=== PATIENT | female | born 1970 | race Caucasian/White ===

== ENCOUNTER → 2018-12-08 | Day surgery (SDC) | payer OTHER ==
--- NOTE | 2018-12-12 16:21 | PATH ---
Surgical Pathology Report Patient Name: MIRNA HOWE [facility]. Rec. #: [id number] /Age/Gender: 1970 (Age: 48) / F Account: [id number] Location: [facility] Taken: 12/08/2018 Received: 12/08/2018 Reported: 12/12/2018 Physicians: Elsi Elkins M.D. Specimen(s) Received A: LEFT BREAST SPECIMEN - WITH CALCIFICATIONS B: LEFT BREAST SPECIMEN - WITHOUT CALCIFICATIONS Clinical History Nonpalpable lesion Mammographic findings: Microcalcification, suspicious Final Diagnosis A. LEFT BREAST WITH CALCIFICATIONS, STEREOTACTIC BIOPSY: BREAST TISSUE WITH MUCOCELE-LIKE LESION. SEE COMMENT. B. LEFT BREAST WITHOUT CALCIFICATIONS, STEREOTACTIC BIOPSY: BREAST TISSUE WITH MUCOCELE-LIKE LESION. SEE COMMENT. Comment: Mucocele-like lesion with stromal extravasation of mucin, focal associated atypical ductal hyperplasia (ADH), columnar cell change, and extensive calcifications present in association with mucinous contents. Electronically Signed Shay Cordero M.D. Gross Description A. Received in formalin labeled "left breast with calcifications," are 8 hearn-yellow, cylindrical portions of fibroadipose tissue ranging from 0.7-3.4 cm in length and averaging 0.3 cm in diameter. The specimens are submitted in toto in 2 cassettes. B. Received in formalin labeled "left breast without calcifications," are 5 hearn-yellow, cylindrical portions of fibroadipose tissue ranging from 0.4-1.5 cm in length and averaging 0.3 cm in diameter. The specimens are submitted in toto in one cassette. Time to formalin fixation: 5 minutes Total formalin fixation time: Approximately 28 hours. 12/09/201812/09/2018
== END | disposition home or self-care (01) ==
LOC: FMAMMOTONE 13:24
PROVIDERS: ATTEND Surgery Surgical Oncology
PROC: 0HBU3ZX Excision of Left Breast, Percutaneous Approach, Diagnostic (ICD-10-PCS; principal; 2018-12-08)
DX: N60.89 Other benign mammary dysplasias of unspecified breast (principal); R92.1 Mammographic calcification found on diagnostic imaging of breast
CPT/HCPCS: 19081; 87899; 88305-TC; A4648

== ENCOUNTER → 2018-12-09 | Day surgery (SDC) | payer OTHER ==
--- NOTE | 2018-12-12 17:54 | PATH ---
Surgical Pathology Report Patient Name: MIRNA HOWE [facility]. Rec. #: [id number] /Age/Gender: 1970 (Age: 48) / F Account: [id number] Location: [facility] Taken: 12/09/2018 Received: 12/09/2018 Reported: 12/12/2018 Physicians: Elsi Elkins M.D. Specimen(s) Received RIGHT BREAST CORE BIOPSY 9:30-10:00 N4 Clinical History Non-palpable lesion. Ultrasound findings: Cystic lesion Final Diagnosis BREAST, 9:30-10:00, N4, CORE BIOPSY: BENIGN BREAST PARENCHYMA WITH STROMAL FIBROSIS, MICROCYSTS, DILATED DUCTS, USUAL DUCTAL HYPERPLASIA, FOCAL MILD CHRONIC INFLAMMATION AND HISTIOCYTIC PROLIFERATION. Comment: Deeper levels have been examined. Electronically Signed Gregoria Schwartz M.D. Gross Description Received in formalin, labeled "right breast, core biopsy, 9:30-10:00 N4" is a 1.3 x 0.8 x 0.2 cm aggregate of cores and fragments of light hearn and yellow-hearn tissue admixed with blood clot. Entirely submitted in one cassette. Time to formalin fixation: < 1 minute. Total formalin fixation: Approximately 6 hours AE/12/09/2018 ebram/12/09/2018
--- NOTE | 2018-12-13 10:08 | OP ---
DATE OF OPERATION: 12/09/2018 PREOPERATIVE DIAGNOSIS: Right breast mass, 9 thirty to 10 o'clock, 4 cm from the nipple. POSTOPERATIVE DIAGNOSIS: Right breast mass, 9 thirty to 10 o'clock, 4 cm from the nipple. PROCEDURE: Right ultrasound-guided core biopsy with clip placement. ANESTHESIA: Local. ATTENDING SURGEON: Elsi Elkins MD ESTIMATED BLOOD LOSS: Minimal. COMPLICATIONS: None. DESCRIPTION OF PROCEDURE: Patient was made aware of the risks and benefits of the procedure and consented. She was placed in the supine position. Under sterile conditions with 1% Lidocaine for local anesthesia, a small monica was made in the skin. Using a 13-guage suction biopsy device via lateral approach under ultrasound guidance, multiple cores were obtained and submitted to Pathology. Likewise, under ultrasound guidance, a U-shaped clip was placed into the biopsy region. Well tolerated by patient. Steri-Strip and sterile bandage were applied. We will contact her with the results. ELSI ELKINS M.D. [id number]
== END | disposition home or self-care (01) ==
LOC: FRADUS-SUR 15:01
PROVIDERS: ATTEND Surgery Surgical Oncology
PROC: 0HBT3ZX Excision of Right Breast, Percutaneous Approach, Diagnostic (ICD-10-PCS; principal; 2018-12-09)
DX: N60.31 Fibrosclerosis of right breast (principal); N60.11 Diffuse cystic mastopathy of right breast; N60.81 Other benign mammary dysplasias of right breast; N64.89 Other specified disorders of breast; N63.11 Unspecified lump in the right breast, upper outer quadrant
CPT/HCPCS: 19083; 87899; 88305-TC; A4648

== ENCOUNTER 2019-01-17 10:04 | Day surgery (SDC) | payer OTHER | END 2019-01-17 15:30 | disposition home or self-care (01) | LOC: FASU 10:04 ==

== ENCOUNTER 2019-02-28 05:30 | Day surgery (SDC) | payer OTHER ==
[2019-02-23 16:41] VITALS: BMI 27.3
--- NOTE | 2019-02-28 09:19 | HP ---
History & Physical Update - Physical Physical: No Change - Assessment Assessment: No Change - Plan Plan: No Change (H&P reviwed , no changes noted)
[2019-02-28] MEDS ORDERED: PROPOFOL 20 ML ONE (10:12)
[2019-02-28] MEDS ORDERED: MIDAZOLAM HCL 2 MG/2 ML SINGLE DOSE VIAL ONE (10:12)
[2019-02-28] MEDS ORDERED: LIDOCAINE HCL/PF 2% SDV 5ML VIAL ONE (10:42)
[2019-02-28] MEDS ORDERED: KETOROLAC TROMETHAMINE 30 MG/1 ML VIAL ONE (10:42)
[2019-02-28] MEDS ORDERED: DEXAMETHASONE SOD PHOSPHATE 4 MG/1 ML VIAL ONE (10:42)
[2019-02-28] MEDS ORDERED: ONDANSETRON 4 MG/2 ML VIAL IVPUSH PRN ×2 (10:57→11:15)
[2019-02-28] MEDS ORDERED: LACTATED RINGERS SOLUTION 1,000 ML IV SCH (11:00)
[2019-02-28] MEDS ORDERED: IBUPROFEN 800 MG/8 ML IJ IVPB PRN (11:15)
[2019-02-28] MEDS ORDERED: oxyCODONE HCL 5 MG TABLET PO PRN (11:15)
[2019-02-28] MEDS ORDERED: ELECTROLYTE-148 SOLN 1,000 ML IV SCH (11:15)
[2019-02-28] MEDS ORDERED: IBUPROFEN 600 MG TABLET (FP) PO PRN (11:15)
--- NOTE | 2019-02-28 12:54 | OP ---
DATE OF OPERATION: 02/28/2019 PREOPERATIVE DIAGNOSIS: Menometrorrhagia, endometrial polyp. POSTOPERATIVE DIAGNOSIS: Menometrorrhagia, endometrial polyp. PROCEDURE: Hysteroscopy, dilation and curettage, and polypectomy. SURGEON: Caleb Simmons MD ANESTHESIA: General. ESTIMATED BLOOD LOSS: 50 mL. DESCRIPTION OF PROCEDURE: Patient was taken to the operating room under adequate general anesthesia in dorsal lithotomy position. Examination under anesthesia revealed external genitalia to be normal, vagina was normal. Cervix was clean. No gross lesion. Uterus was prominent, anteverted. Adnexa, no masses were palpable. Then with a weighted speculum in the vagina, anterior lip of the cervix was grasped with a single-tooth tenaculum and then uterine cavity was sounded to 10 cm. Then cervix was slightly dilated and then hysteroscope was introduced. Visualization of endocervical canal appeared to be normal. Endometrium was irregular with 2 polyps seen, 1 at the fundal area and 1 at the midbody of the uterus. Both cornual regions were identified. No other abnormalities were noted. No submucous myoma seen. Then polyp was removed and endometrium was curetted in quality lab assoc fashion with no difficulty. Patient tolerated the procedure well. Left the OR in good condition. CALEB SIMMONS M.D. [id number]
[2019-02-28 12:56] VITALS: BP 116/71; PULSE 72; TEMP 100
== END 2019-02-28 13:03 | disposition home or self-care (01) ==
LOC: JASU-SURG 05:30
PROVIDERS: ATTEND Obstetrics & Gynecology
PROC: 0UDB8ZX Extraction of Endometrium, Via Natural or Artificial Opening Endoscopic, Diagnostic (ICD-10-PCS; 2019-02-28)
PROC: 0UB98ZX Excision of Uterus, Via Natural or Artificial Opening Endoscopic, Diagnostic (ICD-10-PCS; principal; 2019-02-28 10:00)
DX: N92.1 Excessive and frequent menstruation with irregular cycle (principal); N84.0 Polyp of corpus uteri
CPT/HCPCS: 84703; 94760

== ENCOUNTER 2019-06-30 08:47 | Day surgery (SDC) | payer OTHER ==
[2019-06-29 16:34] VITALS: BMI 27.0
[2019-06-30 10:26] VITALS: TEMP 98.7
[2019-06-30 11:27] VITALS: BP 104/62; PULSE 71
--- NOTE | 2019-07-03 13:50 | PATH ---
Surgical Pathology Report Patient Name: MIRNA HOWE [facility]. Rec. #: [id number] /Age/Gender: 1970 (Age: 49) / F Account: [id number] Location: [facility] Taken: 06/30/2019 Received: 06/30/2019 Reported: 07/03/2019 Physicians: Rogerio Rueda M.D. Specimen(s) Received A: 2ND PORTION DUODENUM AND BULB B: BX ANTRUM C: FUNDUS POLYPS D: RIGHT COLON POLYPS Clinical History Colon screening, abdominal pain Postoperative diagnosis: Hiatal hernia, gastric polyps, colon polyps Final Diagnosis A. SECOND PORTION OF DUODENUM AND BULB, BIOPSY: DUODENAL MUCOSA WITH FOCAL MILD NONSPECIFIC CHRONIC DUODENITIS. NO HISTOLOGIC EVIDENCE OF INTRAEPITHELIAL LYMPHOCYTOSIS. B. ANTRUM, BIOPSY: GASTRIC MUCOSA WITH CHRONIC GASTRITIS. IMMUNOSTAIN FOR H. PYLORI IS NEGATIVE. NEGATIVE FOR INTESTINAL METAPLASIA. C. GASTRIC FUNDIC POLYPS, BIOPSY: FRAGMENTS OF FUNDIC GLAND POLYP. IMMUNOSTAIN FOR H. PYLORI IS NEGATIVE. D. RIGHT COLON POLYPS, POLYPECTOMY: TUBULAR ADENOMA, MULTIPLE FRAGMENTS. Electronically Signed Shay Cordero M.D. Gross Description A. Received in formalin, labeled "biopsy second portion of duodenum and bulb" are 4 hearn, irregular portions of soft tissue ranging from 0.3-0.4 cm. in greatest dimension. The specimens are submitted in toto in one cassette. B. Received in formalin, labeled "biopsy antrum" are 3 hearn, irregular portions of soft tissue ranging from 0.3-0.5 cm. in greatest dimension. The specimens are submitted in toto in one cassette. C. Received in formalin, labeled "biopsy gastric fundic polyps" are 4 hearn, irregular portions of soft tissue ranging from 0.2-0.4 cm. in greatest dimension. The specimens are submitted in toto in one cassette. D. Received in formalin, labeled "biopsy right colon polyps" are 5 hearn, irregular portions of soft tissue ranging from 0.1-0.3 cm. in greatest dimension. The specimens are submitted in toto in one cassette. DL/06/30/2019 saudi/06/30/2019
== END 2019-06-30 11:34 | disposition home or self-care (01) ==
LOC: JASU-ENDO 08:47
PROVIDERS: ATTEND Internal Medicine Gastroenterology
PROC: 0DB68ZX Excision of Stomach, Via Natural or Artificial Opening Endoscopic, Diagnostic (ICD-10-PCS; 2019-06-30)
PROC: 0DBK8ZX Excision of Ascending Colon, Via Natural or Artificial Opening Endoscopic, Diagnostic (ICD-10-PCS; principal; 2019-06-30 09:30)
DX: Z12.11 Encounter for screening for malignant neoplasm of colon (principal); D12.2 Benign neoplasm of ascending colon; K21.9 Gastro-esophageal reflux disease without esophagitis; K44.9 Diaphragmatic hernia without obstruction or gangrene; K31.7 Polyp of stomach and duodenum
CPT/HCPCS: 81025; 88305-TC; 88342-TC

== ENCOUNTER → 2022-03-05 | Day surgery (SDC) | payer OTHER | END | disposition home or self-care (01) | LOC: FMAMMOTONE 10:40 | PROVIDERS: ATTEND Surgery Surgical Oncology | PROC: 0HBU3ZX Excision of Left Breast, Percutaneous Approach, Diagnostic (ICD-10-PCS; principal; 2022-03-05) | DX: N60.12 Diffuse cystic mastopathy of left breast (principal); N64.89 Other specified disorders of breast; R92.1 Mammographic calcification found on diagnostic imaging of breast | CPT/HCPCS: 19081; 76098-TC-FY; 87899; 88305-TC; A4648 ==

== ENCOUNTER 2022-08-21 04:29 | Day surgery (SDC) | payer OTHER ==
[2022-08-19 08:59] VITALS: BMI 25.2
[2022-08-21 10:55] VITALS: TEMP 98
[2022-08-21 11:40] VITALS: BP 115/91; PULSE 81; RESP 15
== END 2022-08-21 11:45 | disposition home or self-care (01) ==
LOC: JASU-ENDO 04:29
PROVIDERS: ATTEND Internal Medicine Gastroenterology
PROC: 0DBL8ZX Excision of Transverse Colon, Via Natural or Artificial Opening Endoscopic, Diagnostic (ICD-10-PCS; 2022-08-21)
PROC: 0DBP8ZX Excision of Rectum, Via Natural or Artificial Opening Endoscopic, Diagnostic (ICD-10-PCS; principal; 2022-08-21 10:00)
DX: Z12.11 Encounter for screening for malignant neoplasm of colon (principal); D12.3 Benign neoplasm of transverse colon; D12.8 Benign neoplasm of rectum; K64.8 Other hemorrhoids; K57.30 Diverticulosis of large intestine without perforation or abscess without bleeding; Z86.010 Personal history of colon polyps
CPT/HCPCS: 81025; 88305-TC